=== PATIENT | female | born 1980 | race Caucasian/White ===

== ENCOUNTER 2024-01-14 11:49 | Emergency (ER) | payer MEDICAID ==
[~2024-01-14] VITALS: Ht 165.1 cm; Wt 102.0 kg
[2024-01-14 11:57] VITALS: O2SAT 99
[2024-01-14] MEDS ORDERED: IBUP-2029 MT (16:08)
[2024-01-14] MEDS ORDERED: LIDO1ADH7 TP (16:27)
[2024-01-14] MEDS ORDERED: CYCL5TAB MT (16:27)
[2024-01-14 16:43] VITALS: BP 130/79; PULSE 77; RESP 18; TEMP 98.2
== END 2024-01-14 16:47 | disposition home or self-care (01) ==
LOC: ER 11:49
DX: M54.50 Low back pain, unspecified (principal); Z98.890 Other specified postprocedural states
CPT/HCPCS: 72131; 81025; 99284